=== PATIENT | female | born 1955 | race Caucasian/White ===

== ENCOUNTER 2020-01-08 09:17 | Observation (INO) ==
[2020-01-08] MEDS ORDERED: ASPIRIN PR ONE (09:31)
[2020-01-08] MEDS ORDERED: ASPIRIN PO ONE (09:31)
--- NOTE | 2020-01-08 09:56 | Diag Imaging Result Doc PS360 ---
EXAM: CHEST-2 VIEWS HISTORY: chest pain protocol TECHNIQUE: Two views COMPARISON: 07/03/2018 FINDINGS: The lungs are well expanded. The heart is not enlarged. The vessels are not distended. There are no infiltrates. No pleural effusions. IMPRESSION: No acute abnormality. Electronically signed by Simeon Ferro 01/08/2020 9:54 AM
[2020-01-08 10:01] LABS: BASO# 0.04 X1000 (0.0-0.2); BASO% 0.5 % (0.0-0.8); EOS# 0.21 X1000 (0.0-0.7); EOS% 2.8 % (0.0-10.0); HEMATOCRIT 40.3 % (37.0-47.0); HEMOGLOBIN 12.7 g/dL (12.0-16.0); IMM GRAN# 0.01 X1000 (0.0-0.04); IMM GRAN% 0.1 % (0.0-0.5); LYMPH# 2.34 X1000 (1.2-3.4); LYMPH% 31.7 % (20.5-51.1); MCH 29.1 PG (27-31); MCHC 31.5 g/dL (33-37); MCV 92.4 FL (81-99); MONO# 0.78 X1000 (0.11-0.59); MONO% 10.6 % (1.7-9.3); MPV 9.7 FL (7.4-10.4); NEUT% 54.3 % (42.2-75.2); PLT 413 X1000 (130-400); RBC 4.36 XMIL (4.2-5.4); RDW 12.7 % (11.5-14.5); WBC 7.38 X1000 (4.8-10.8)
[2020-01-08 10:11] LABS: AGAP 14; ALBUMIN 4.5 g/dL (3.5-5.0); ALKALINE PHOSPHATASE 101 U/L (32-104); BUN 14 mg/dL (8-22); CALCIUM 9.5 mg/dL (8.8-10.2); CHLORIDE 100 mmol/L (98-107); CK PROFILE 82 U/L (24-173); COSMO 280; CREATININE 0.8 mg/dL (0.5-0.9); ESTIMATED GFR > 60; GLUCOSE 98 mg/dL (70-104); GOT 17 U/L (10-30); GPT 12 U/L (10-36); INR 0.92; POTASSIUM 4.5 mmol/L (3.5-5.1); PROTIME 12.8 Seconds (11.0-16.0); SODIUM 140 mmol/L (136-145); TCO2 26 mmol/L (25-35); TOTAL PROTEIN 7.3 g/dL (6.3-8.3)
[2020-01-08 10:12] LABS: PTT 29.2 Seconds (22.3-41.8)
--- NOTE | 2020-01-08 10:14 | EKG Report ---
Test Performed on : 01/08/2020 09:24:50 AM Test Reason : cp Blood Pressure : / mmHG Vent. Rate : 098 BPM Atrial Rate : 098 BPM P-R Int : 120 ms QRS Dur : 074 ms QT Int : 332 ms P-R-T Axes : 047 015 066 degrees QTc Int : 423 ms Normal sinus rhythm. Normal ECG When compared with ECG of 03-JUL-2018 11:36, No significant change was found Unconfirmed Result
[2020-01-08] MEDS ORDERED: ZOFRAN IV PRN (13:27)
[2020-01-08] MEDS ORDERED: AMBIEN PO PRN (13:27)
[2020-01-08] MEDS ORDERED: TYLENOL PO PRN (13:27)
[2020-01-08] MEDS ORDERED: G.I. COCKTAIL PO PRN (13:30)
[2020-01-08] MEDS ORDERED: MOTRIN PO ONE (14:26)
--- NOTE | 2020-01-08 15:11 | HISTORY AND PHYSICAL ---
PRIMARY CARE PROVIDER: Dr. Garcia. CHIEF COMPLAINT: Chest pain. HISTORY OF PRESENT ILLNESS: Ms. Paulina Fry is a 64-year-old, female with a medical history of hyperlipidemia, hypothyroidism, chronic constipation, hypertension, and depression who is here with complaints of left substernal chest pain. She states that it would radiate into her left neck, into her shoulder and arm, and had some associated nausea with it. It was worse with activity. It would ease up with rest. She had some chills. No shortness of breath. No dizziness or lightheadedness. However, with palpation, the pain was able to be significantly reproduced. We will go ahead and do a cardiac workup. Her father was early 50s when he had to have bypass surgery, at 52 actually, and from a massive heart attack at 62. She is a nonsmoker. She is not overweight. She does have elevated cholesterol so we will do a stress test in the morning. PAST MEDICAL HISTORY: 1. Hyperlipidemia. 2. Hypothyroidism. 3. Chronic constipation. 4. Hypertension. 5. Depression. SURGICAL HISTORY: 1. Hysterectomy. 2. Cyst on her neck removed. 3. section. 4. Appendectomy. 5. Liposuction of the abdomen. SOCIAL HISTORY: Denies tobacco, alcohol, or illicit drug use. 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 FAMILY HISTORY: Mother, no medical conditions. Father had to have bypass surgery at the age of 52 and from a massive heart attack at 62. ALLERGIES: Atorvastatin. HOME MEDICATIONS: Not yet reconciled. REVIEW OF SYSTEMS: Fourteen point review of systems are complete and all are negative except for those mentioned above in the HPI. She states that she also has difficulty swallowing, sometimes even difficulty swallowing pills. PHYSICAL EXAMINATION: VITAL SIGNS: Temperature 98 degrees, heart rate 95, respiratory rate 16, blood pressure 154/98, O2 saturation 99% on room air. GENERAL: Ms. Paulina Fry is a 64-year-old, female. She is in no acute distress. She is able answer questions appropriately. HEENT: Atraumatic, normocephalic. Pupils equal, round, reactive to light. Extraocular movements intact. Mucous membranes are moist. NECK: Trachea midline. CARDIOVASCULAR: S1, S2. Regular rate and rhythm. No rubs, gallops, murmurs. No lower extremity edema. There are +2 dorsalis and radial pulses. Negative JVD and carotid bruits. PULMONARY: Clear to auscultate bilateral breath sounds. No accessory muscle use or work of breathing noted. GI: Soft, nontender, nondistended. Positive bowel sounds x4. EXTREMITIES: Moves all extremities equally with full range of motion. NEUROLOGIC: A and O x3. Follows commands. Sensory is intact. SKIN: Warm, dry, intact. LABORATORY DATA: White blood cells 7000, hemoglobin 12, hematocrit 40, platelet count 413,000. INR 0.92, PTT is 29.2. D-dimer is 0.27. Sodium 140, potassium 4.5, BUN 14, creatinine 0.8, glucose 98, calcium 9.5. Bilirubin 0.30, AST 17, ALT 12. CK 82, troponin 13. ProBNP 60. Albumin is 4.5. IMAGING: Chest x-ray, no acute abnormalities. EKG, normal sinus rhythm, rate 98, QTc 423. ASSESSMENT/PLAN: 1. Chest pain, most likely not cardiac-related. Differential diagnosis can be gastroesophageal reflux disease. However, it might be costochondritis or musculoskeletal as the pain was reproduced with palpation along the left of the sternal wall. She was given aspirin, continued on her statin, and she will have a stress test in the morning. Serial cardiac enzymes. 2. Complains of dysphagia type symptoms. No reflux but she says that she can barely swallow pills at times. Her at the bedside states she essentially chokes every time she eats and has not had a workup for this. Maybe once she has the stress test tomorrow, afterwards she could possibly get maybe a barium swallow but we will re-evaluate that tomorrow. It could also be considered handled as an outpatient. 3. Hyperlipidemia. We will continue statin. 4. Hypothyroidism. Continue Synthroid once it is verified. 5. Chronic constipation. 6. Hypertension. I believe she is on spironolactone for that. She used to be on lisinopril which caused throat swelling as well. 7. Depression. Continue home medications once they are verified. 8. Deep venous thrombosis prophylaxis. Sequential compression devices. Dictated by MYRIAM Hamilton for Ronal Santacruz MD cc: MYRIAM Hamilton MD
[2020-01-08] MEDS ORDERED: MOTRIN ONE (15:29)
[2020-01-08] MEDS: PROTONIX PO SCH (16:47)
--- NOTE | 2020-01-09 01:25 | HISTORY AND PHYSICAL ---
ADDENDUM Patient presented to the hospital with chest pain. Denies any previous cardiac issues. Denies any medical problems otherwise. Denies smoking. Does note that her father of an MN at age 62. We are going to admit her to the hospital. Her first 2 sets of enzymes were negative. We will attempt to get a stress test in the morning. cc: Ronal Santacruz MD
[2020-01-09 06:08] LABS: HEMATOCRIT 39.7 % (37.0-47.0); HEMOGLOBIN 12.3 g/dL (12.0-16.0); MCH 28.8 PG (27-31); MPV 9.8 FL (7.4-10.4); RBC 4.27 XMIL (4.2-5.4); RDW 12.7 % (11.5-14.5); WBC 7.1 X1000 (4.8-10.8)
[2020-01-09 06:19] LABS: AGAP 11; ALBUMIN 4.1 g/dL (3.5-5.0); ALKALINE PHOSPHATASE 87 U/L (32-104); BUN 13 mg/dL (8-22); CALCIUM 9.1 mg/dL (8.8-10.2); CHLORIDE 104 mmol/L (98-107); COSMO 282; CREATININE 0.6 mg/dL (0.5-0.9); ESTIMATED GFR > 60; GLUCOSE 108 mg/dL (70-104); GOT 14 U/L (10-30); GPT 11 U/L (10-36); POTASSIUM 4.4 mmol/L (3.5-5.1); SODIUM 141 mmol/L (136-145); TCO2 26 mmol/L (25-35); TOTAL PROTEIN 6.6 g/dL (6.3-8.3)
--- NOTE | 2020-01-09 07:56 | ECHO REPORT ---
ORDER DATE: 01/08/2020 INTERPRETING PHYSICIAN: Malik Rubi MD. REQUESTING PHYSICIAN: Ronal Santacruz MD. CLINICAL INDICATIONS: Chest pain. M-MODE MEASUREMENTS: Left ventricle end diastole: 3.8 cm. Left ventricle end systole: 2.4 cm. Posterior wall: 1.2 cm. Interventricular septum: 1.3 cm. Left atrium: 3.7 cm. Aortic diameter: 2.9 cm. SUMMARY OF 2-DIMENSIONAL IMAGIN. Left ventricular function is normal. Ejection fraction visually estimated at 70%. There is no wall motion abnormality noted. 2. The aortic valve looks normal. Color flow mapping unremarkable. 3. The mitral valve looks normal. Color flow mapping unremarkable. 4. The pulse wave Doppler of mitral inflow is normal. 5. Tissue Doppler of septal and lateral mitral annulus averages 8 cm. 6. There is no diastolic dysfunction. 7. The pulmonic valve looks normal. Color flow mapping indicates trace of regurgitation. 8. The tricuspid valve is normal. Color flow mapping unremarkable. 9. Inferior vena cava is not dilated. 10.Pulmonary pressure is estimated at 28 mmHg. 11.There is no pericardial effusion, no mass, and no thrombus. 12.The left atrium, right atrium, and the right ventricle are normal. SUMMARY: This echocardiographic study appears to be well within normal limits. cc: MD Ronal Castro MD
[2020-01-09] MEDS ORDERED: SYNTHROID PO ONE (08:36)
[2020-01-09] MEDS ORDERED: ASPIRIN PO SCH (09:00)
[2020-01-09] MEDS ORDERED: TRICOR PO SCH (09:00)
[2020-01-09] MEDS ORDERED: ALDACTONE PO SCH (09:00)
[2020-01-09] MEDS ORDERED: PATIENT'S OWN MED PO SCH (09:00)
[2020-01-09] MEDS: PROTONIX PO SCH (10:18)
[2020-01-09 10:52] LABS: CHOLESTEROL 170 mg/dL (0-200); HDL 41 mg/dL (45-65); LDL 107 mg/dL; TRIGLYCERIDES 110 mg/dL (35-135); VLDL 22 mg/dL
--- NOTE | 2020-01-09 14:47 | GRADED EXERCISE REPORT ---
DATE: 01/09/2020 CHIEF COMPLAINT: Chest pain. Briefly her baseline EKG was really unremarkable. Heart rate 78, blood pressure 138/72. She underwent GXT per protocol modified Justice protocol with an 85%. Now on treadmill she developed kind of a brief episode of looks almost like atrial fibrillation kind of an atypical rhythm was irregularly irregular but it kind had a unusual pattern. It was about 5 beats but she spontaneously converted those even before we started the stress testing. She reached her target heart rate pretty quickly actually within the 1st stage but we continued and she reached a heart rate of 184 at peak which was well above her target heart rate but did not have any chest pain or shortness of breath. Peak blood pressure is 160/72, heart rate 110. She recovered very well, went from peak heart rate 184 to 121 within a minute and a half after stopping, it does look like she had some ST depression in lead 2 that qualified but it was very atypical J-point, she had 1 in V4 too, V5 that were ST depressions but they were very atypical like kind had a sloping quality which looked more like a strain pattern than anything else so I would say test is clinically negative, electrically equivocal, nuclear testing will be reported separately. cc: Zeus Wakefield MD
--- NOTE | 2020-01-09 15:58 | Diag Imaging Result Document ---
PROCEDURE NAME: MYOCARDIAL PERF SCAN, STR/REST - 01/09/2020 INDICATION: Chest pain. PROCEDURES PERFORMED: 1. Justice protocol stress. 2. One-day stress-rest myocardial perfusion imaging (rest dose 10.9 millicuries, stress dose 31.6 mCi). FINDINGS: 1. Justice protocol stress results dictated separately. Please note [address] depression in a horizontal fashion. 2. No evidence of transient ischemic dilatation with a TID ratio 1.04. 3. No evidence of abnormal extracardiac uptake. 4. Perfusion imaging demonstrates normal homogenous uptake of radiotracer throughout the myocardial segments. No evidence of ischemic defects. 5. Normal ejection fraction 89%. End-diastolic volume 58, end systolic volume 7. Normal wall motion. cc: MD Ronal Melgar MD
[2020-01-09 16:17] VITALS: BP 125/63
--- NOTE | 2020-01-09 19:03 | DISCHARGE SUMMARY ---
ADMISSION DATE: 01/08/2020 DISCHARGE DATE: 01/09/2020 ADMISSION DIAGNOSES: 1. Chest pain, most likely not cardiac related. 2. Complains of dysphagia type symptoms. 3. Hyperlipidemia. 4. Hypothyroidism. 5. Chronic constipation. 6. Hypertension. 7. Depression. DISCHARGE DIAGNOSIS: Chest pain relieved, was able to be reproduced with chest wall palpation. She also had a negative cardiac stress test. CONSULTATIONS: None. SURGERY/PROCEDURE: She had a cardiac GXT stress test/exercise stress test had a strain pattern, but was clinically negative and myocardial perfusion scan showed [address] depression and horizontal fashion. No evidence of transient ischemic dilatation. No evidence of abnormal extracardiac uptake. Ejection fraction 89%. Normal homogeneous uptake. No ischemic defects. HOSPITAL COURSE: Ms Paulina Fry is a 64-year-old female with a medical history of hyperlipidemia, hypothyroidism, chronic constipation, hypertension, depression who presented with complaints of chest pain on the left side of her chest radiating to her left neck and down both arms that she had nausea with. It was worse with activity and eased up with rest. Some chills. No shortness of breath. No dizziness or lightheadedness. When the chest wall was palpated the pain was reproduced, but she remained here for cardiac work up, as her father was in his 50s when he 1st had to have a coronary bypass. She is nonsmoker. She is not overweight. She does have elevated cholesterol. She had a stress test done this morning and it was clinically negative. DISCHARGE VITAL SIGNS: Temperature 97.7 degrees, heart rate 72, respiratory rate 18, blood pressure 147/74, O2 saturation 99% on room air. DISCHARGE LAB DATA: White blood cells 7000, hemoglobin 12, hematocrit 39, platelet count 406,000. Sodium 141, potassium 4.4, BUN 13, creatinine 0.6, glucose 108, calcium 9.1, magnesium 2.0, bilirubin 0.60, AST 14, ALT 11. All cardiac enzymes were negative. ProBNP was 60. Albumin 4.1. Triglycerides total was 110. Total cholesterol is 170, LDL 107, HDL 41. TSH 0.01, free T4 was 1.45. IMAGING: Chest x-ray, no acute findings. First EKG normal sinus rhythm, rate 98, QTc was 423. Echocardiogram ejection fraction 70%. Normal valves. No diastolic dysfunction. Pulmonary pressure is 28. DISCHARGE MEDICATIONS: 1. Pravastatin 20 mg p.o. nightly. 2. Fenofibrate 160 mg p.o. daily. 3. Levothyroxine 100 mcg p.o. daily. 4. Ramipril 10 mg p.o. daily. 5. Spironolactone 25 mg p.o. daily. 6. Trulance 3 mg p.o. daily. 7. Aspirin 81 mg p.o. daily. DISCHARGE DIET: Heart healthy. DISCHARGE ACTIVITY: As tolerated. PHYSICIAN FOLLOWUP: Dr. Garcia. DISCHARGE INSTRUCTIONS: Take all medications as prescribed. Any new or worsening symptoms please seek medical attention. Please follow up with your primary care provider. DISCHARGE DISPOSITION: Home. Dictated by MYRIAM Hamilton for Ronal Santacruz MD cc: MYRIAM Hamilton MD
[2020-01-09] MEDS ORDERED: PRAVACHOL PO SCH (21:00)
[2020-01-10] MEDS ORDERED: SYNTHROID PO SCH (07:00)
--- NOTE | 2020-01-10 07:33 | DISCHARGE SUMMARY ---
ADMISSION DATE: 01/08/2020 DISCHARGE DATE: 01/09/2020 HOSPITAL COURSE: Patient presented to the hospital with chest pain, appears most likely noncardiac. Certainly may be caused by reflux, but she also has some tenderness in her chest wall to palpation. Her cardiac enzymes were negative. Stress test was negative. Symptoms are still present. They have been fairly distant. Do not appear to wax or wane. Do appear to worsen with movement. However, she also has some difficulty swallowing at times. Notes that she gets choked. We placed her on reflux medicine. She states that has improved. We will discharge her home. If those symptoms return, she certainly will need to follow up with her primary care and may require an EGD. cc: Ronal Santacruz MD
== END 2020-01-09 17:41 | disposition home or self-care (01) ==
LOC: P.ED 09:17 → P.MEDSURG 09:17
PROVIDERS: ATTEND Family Medicine